=== PATIENT | female | born 1950 | race Caucasian/White ===

== ENCOUNTER → 2016-11-18 | Outpatient (CLI) | payer BC ==
[~2016-11-18] MED LIST: CIPRO500 MG PO; DAILY VITE1 EACH PO; NEURONTIN100 MG PO
== END | disposition disaster alternative care site (69) ==
LOC: GRAD 13:30
DX: R31.0 Gross hematuria (principal); R10.9 Unspecified abdominal pain; N20.2 Calculus of kidney with calculus of ureter

== ENCOUNTER → 2016-11-19 | Day surgery (SDC) | payer BC ==
[~2016-11-19] VITALS: Ht 160 cm; Wt 63.3 kg
--- NOTE | ~2016-11-19 | HP ---
PATIENT'S NAME: MALA FELDMAN [facility] AGE: 66 Y [address] ROOM: [place], [place] [address] LOCATION: [facility] [place] ADMIT DATE: 11/19/2016 History & Physical DISCHARGE DATE: FAMILY PHYSICIAN: Khalida Hodges MD ATTENDING PHYSICIAN: Ochoa Munoz DATE OF SERVICE: HISTORY OF PRESENT ILLNESS: A 66-year-old white female, who was well until October 2016, when she began having some voiding symptoms with dysuria, burning, and abdominal discomfort. She self-treated with Cipro 500 mg b.i.d., but continued to have the same symptoms. She then started on Bactrim DS again with no improvement. On November 17, 2016, she began having gross hematuria and increasing mid abdominal and upper abdominal pain and discomfort. No nausea or vomiting. Presently, her chief complaint is suprapubic and abdominal pain and discomfort along with gross hematuria. She has history of multiple sclerosis and has had multiple recurrent urinary tract infections and has been on suppression with fairly good results. In April 2016, she had an infection, was treated with Keflex 500 mg b.i.d. for 7 days and then placed on Bactrim at bedtime. In July 2016, her urine culture revealed Pseudomonas. She was again treated with Cipro. Her creatinine at that time was 1.2. PAST MEDICAL HISTORY: Illness: Multiple sclerosis. Operations: Tubal ligation, , hysterectomy. ALLERGIES: NONE KNOWN. PHYSICAL EXAMINATION: GENERAL: A well-developed female, who is wheelchair bound, weakness of the lower extremities, unable to walk. CHEST: Clear. HEART: Normal sinus rhythm. ABDOMEN: Soft, slightly distended, and diffusely tender. PELVIC: She has a normal urethra. Normal vagina. No palpable masses. RECTAL: Negative. PATIENT'S NAME: MALA FELDMAN [facility] AGE: 66 Y [address] ROOM: [place], [place] [address] LOCATION: [facility] [place] ADMIT DATE: 11/19/2016 History & Physical DISCHARGE DATE: FAMILY PHYSICIAN: Khalida Hodges MD ATTENDING PHYSICIAN: Ochoa Munoz In the office, her urine was grossly bloody and a cystoscopy was done in the office, which was essentially normal with no obvious reason for her gross hematuria. A CT scan was done, and this showed a large stone in the renal pelvis on the right. IMPRESSION: 1. Nephrolithiasis, right. 2. Multiple sclerosis. PLAN: Cysto, stent, and then we will schedule her for an ESWL. MD BETH SPANGLER/don /[id number] D: T: HISTORY & PHYSICAL
--- NOTE | ~2016-11-19 | OR ---
PATIENT'S NAME: MALA FELDMAN [facility] AGE: 66 Y [address] ROOM: [place] [address] [place] [facility] [place] ADMIT DATE: 11/19/2016 OR/Procedure Report DISCHARGE DATE: FAMILY PHYSICIAN: Khalida Hodgse MD ATTENDING PHYSICIAN: Adrianna Munoz SURGEON: Adrianna Munoz MD HIDE STRETCHER HAND: DATE OF PROCEDURE: 11/19/2016 PREOPERATIVE DIAGNOSIS: Right renal pelvis stones. POSTOPERATIVE DIAGNOSIS: Right renal pelvis stones. PROCEDURES PERFORMED: Cystoscopy and insertion of stent 4.8 multi-length. DESCRIPTION OF PROCEDURE: After adequate anesthesia, she was placed in dorsal lithotomy position, prepped and draped. Cystoscope was inserted and the bladder was examined and it was normal. A guidewire was passed into the area of the right renal pelvis where the stone was visualized, and then over the guidewire, a 4.8 multi-length stent was passed. It coiled nicely in the renal pelvis around the stone with the other end in the bladder. She was then accompanied to recovery area. ADRIANNA MUNOZ MD EKL/modl /[id number] d: 11/19/16 1711 t: 11/21/16 0440, OPERATIVE SUMMARY
[2016-11-19 07:37] LABS: BASOPHIL % 0.6 %; HEMATOCRIT 42.4 % (33.0-46.0); HEMOGLOBIN 13.6 g/dL (10.0-15.0); IMMATURE GRANULOCYTE % 0.2 %; LYMPHOCYTE % 30.2 %; MCHC 32.1 gm/dL (32.0-36.5); MCV 87.2 fl (83.0-98.0); MONOCYTE # 0.6 K/uL (0.0-1.0); MONOCYTE % 9.1 %; MPV 9.2 fl (9.4-12.4); NEUTROPHIL % 59.9 %; NRBC % 0 /100WBC (0-0.00); PLATELET COUNT 306 K/uL (150-450); RBC 4.86 M/uL (3.50-5.50); RDW-CV 12.8 % (11.9-14.6); WBC 6.6 K/uL (4.0-11.0)
== END | disposition disaster alternative care site (69) ==
LOC: GPOC 11-18 16:30 → GSDC 07:00
PROVIDERS: Urology
PROC: 0T768DZ Dilation of Right Ureter with Intraluminal Device, Via Natural or Artificial Opening Endoscopic (ICD-10-PCS; principal; 2016-11-19)
DX: N20.0 Calculus of kidney (principal); G35 Multiple sclerosis; Z98.51 Tubal ligation status; Z90.710 Acquired absence of both cervix and uterus; Z98.890 Other specified postprocedural states
CPT/HCPCS: C1769; C2617; J2001; J7030

== ENCOUNTER → 2016-11-25 | Day surgery (SDC) | payer BC ==
[~2016-11-25] VITALS: Ht 160 cm; Wt 61.1 kg
--- NOTE | ~2016-11-25 | OR ---
PATIENT'S NAME: MALA FELDMAN [facility] AGE: 66 Y [address] ROOM: [place] [id number] LOCATION: [facility] [place] ADMIT DATE: 11/25/2016 OR/Procedure Report DISCHARGE DATE: FAMILY PHYSICIAN: Khalida Hodges MD ATTENDING PHYSICIAN: Adrianna Munoz SURGEON: Adrianna Munoz MD TREATING AND PUMPING SUPERVISOR: DATE OF PROCEDURE: 11/25/2016 PREOPERATIVE DIAGNOSIS: Right renal pelvis stone. POSTOPERATIVE DIAGNOSIS: Right renal pelvis stone. PROCEDURE PERFORMED: ESWL right renal pelvis stone. DESCRIPTION OF PROCEDURE: The patient was accompanied to operating room #5, placed on the lithotripsy table and then the stone in the right renal pelvis was localized. Impulses were directed at the stone starting at 14 kV and increased to 24 kV. A total of 2500 impulses were directed and the stone fragmented very nicely. She was then accompanied to recovery area. ADRIANNA MUNOZ MD EKL/modl /[id number] d: 11/25/16 1056 t: 11/27/16 0431, OPERATIVE SUMMARY
== END ==
LOC: GSDC 05:30
PROC: 0TF3XZZ Fragmentation in Right Kidney Pelvis, External Approach (ICD-10-PCS; principal; 2016-11-25)
DX: N20.0 Calculus of kidney (principal); G35 Multiple sclerosis; Z98.51 Tubal ligation status; Z90.710 Acquired absence of both cervix and uterus; Z98.890 Other specified postprocedural states; Z79.2 Long term (current) use of antibiotics; Z79.899 Other long term (current) drug therapy
CPT/HCPCS: J2001; J7030

== ENCOUNTER → 2016-12-10 | Outpatient (CLI) | payer BC | END | disposition disaster alternative care site (69) | LOC: GRAD 11:46 | DX: N20.0 Calculus of kidney (principal) ==

== ENCOUNTER → 2017-02-06 | Outpatient (CLI) | payer BC | END | disposition disaster alternative care site (69) | LOC: GBCOE 02-05 09:00 | DX: Z12.31 Encounter for screening mammogram for malignant neoplasm of breast (principal) | CPT/HCPCS: G0202 ==